=== PATIENT | male | born 1965 | race Caucasian/White ===

== ENCOUNTER 2019-03-28 03:35 | Emergency (ER) | payer BC ==
[2019-03-28 04:25] VITALS: RESP 18
--- NOTE | 2019-03-28 04:38 | ED ---
SOB HPI - General Chief Complaint: Shortness of Breath Stated Complaint: Diff Breathing Time Seen by Provider: 03/28/19 03:38 Source: patient, family Mode of arrival: wheelchair Limitations: no limitations - History of Present Illness Initial Comments: Gerald is a 53-year-old male who presents the ER for evaluation of coughing episode. Patient reports that he came home from work on Thursday with the fever, URI symptoms and cough. Patient reports that he slept most the afternoon Thursday but had to return to work on Thursday which time he still felt worse. He was feeling better on Thursday but began to have a lot of nasal drainage and congestion. Patient states that he went to bed and was woken by a coughing fit feeling like he had mucus in his throat. Patient states this past and he was feeling better he went back to sleep and again woke and had a coughing episode, coughed up mucus and then felt as though his throat closed and he couldn't catch his breath for approximately 3 seconds at which time he decided to come to the ER for further evaluation. Patient denies any pressure-like chest pain, chest pain, palpitations lightheadedness diaphoresis nausea or vomiting. - Related Data Allergies Allergy/AdvReac Type Severity Reaction Status Date / Time No Known Allergies Allergy Verified 03/28/19 03:51 Review of Systems ROS Statement: Those systems with pertinent positive or pertinent negative responses have been documented in the HPI. ROS Other: All systems not noted in ROS Statement are negative. Past Medical History Additional Past Medical History / Comment(s): cardiomyopathy History of Any Multi-Drug Resistant Organisms: None Reported Past Surgical History: No Surgical Hx Reported Past Psychological History: No Psychological Hx Reported Smoking Status: Never smoker Past Alcohol Use History: None Reported Past Drug Use History: None Reported General Exam - General Exam Comments Initial Comments: Physical Exam GENERAL: Patient is well-developed and well-nourished. Patient is nontoxic and well-hydrated and is in no distress. Morbidly obese HENT: Normocephalic, Atraumatic. EYES: PERRL, EOMI PULMONARY: Unlabored respirations. No audible rales rhonchi or wheezing was noted. CARDIOVASCULAR: There is a regular rate and rhythm without any murmurs gallops or rubs. ABDOMEN: Soft and nontender with normal bowel sounds. SKIN: Skin is clear with no lesions or rashes and otherwise unremarkable. : Deferred NEUROLOGIC: Patient is alert and oriented x3. Moving all extremities spontaneously MUSCULOSKELETAL: Normal extremities with adequate strength and full range of motion. No lower extremity swelling or edema. No calf tenderness. PSYCHIATRIC: Normal psychiatric evaluation. Limitations: no limitations Course Vital Signs 03/28/19 03/28/19 03:46 04:20 Temperature 99.8 F H Pulse Rate 93 Respiratory 20 18 Rate Blood Pressure 143/86 O2 Sat by Pulse 97 Oximetry Medical Decision Making - Medical Decision Making Patient was seen and evaluated history is obtained from patient and at bedside history and physical exam are concerning for flulike illness and an episode of coughing which the patient describes as feeling as though his throat closed for approximately 3 seconds. I suspect the patient experienced vocal cord spasm, this was discussed with the patient. However influenza testing and chest x-ray will be obtained. X-ray with no signs of pneumonia or acute findings ambulating throughout the emergency department without any symptoms or complaints Influenza testing was negative. Results were discussed with the patient who is comfortable with plan for discharge home. Supportive care was discussed. All questions pertaining care were answered return parameters were discussed patient was advised that if he has a feeling that he can't breathe to attempt slow deep breaths or call 911 immediately. - Lab Data Lab Results 03/28/19 Range/Units 04:41 Influenza Type A RNA Not Detected (Not Detectd) Influenza Type B (PCR) Not Detected (Not Detectd) Disposition Clinical Impression: Cough Disposition: HOME SELF-CARE Condition: Stable Instructions (If sedation given, give patient instructions): Upper Respiratory Infection (DC) Is patient prescribed a controlled substance at d/c from ED?: No Referrals: Bakari Pastor MD [Primary Care Provider] - 1-2 days
--- NOTE | 2019-03-28 04:51 | XR ---
EXAMINATION TYPE: XR chest 2V DATE OF EXAM: 03/28/2019 COMPARISON: NONE HISTORY: Cough TECHNIQUE: FINDINGS: There is no heart failure nor confluent pneumonic infiltrate. Costophrenic angles are clear . There is spurring in the thoracic spine. Heart size is normal. There are no hilar masses. IMPRESSION: No active cardiopulmonary disease.
[2019-03-28 05:53] VITALS: BP 143/88; PULSE 92; TEMP 98.6
== END 2019-03-28 05:53 | disposition home or self-care (01) ==
LOC: EC 03:35
DX: R05 Cough (principal); R06.02 Shortness of breath; R06.00 Dyspnea, unspecified
CPT/HCPCS: 71046; 87502; 99285

== ENCOUNTER 2020-06-09 10:45 | Emergency (ER) | payer BC ==
[2020-06-09 10:49] VITALS: RESP 18
[2020-06-09] MEDS ORDERED: ONDANSETRON ODT 4 MG TAB PO STA (11:15)
--- NOTE | 2020-06-09 11:15 | ED ---
General Adult HPI - General Chief complaint: Upper Respiratory Infection Stated complaint: wants Covid test Time Seen by Provider: 06/09/20 10:45 Source: patient, RN notes reviewed, old records reviewed Mode of arrival: ambulatory Limitations: no limitations - History of Present Illness Initial comments: This is a 54-year-old male who complains about being exposed to COVID by his . Patient states she's had diarrhea and has had a slight cough. Patient also states she is mildly nauseated but has not vomited. Patient denies fever chills. Patient states he has lost his sense of taste and smell. Patient states symptoms started . Patient denies any chest pain or difficulty breathing or shortness of breath. Patient denies any abdominal pain. Patient denies any swelling to the legs or calf tenderness. - Related Data Allergies Allergy/AdvReac Type Severity Reaction Status Date / Time No Known Allergies Allergy Verified 06/09/20 10:49 Review of Systems ROS Statement: Those systems with pertinent positive or pertinent negative responses have been documented in the HPI. ROS Other: All systems not noted in ROS Statement are negative. Past Medical History Additional Past Medical History / Comment(s): cardiomyopathy History of Any Multi-Drug Resistant Organisms: None Reported Past Surgical History: No Surgical Hx Reported Past Psychological History: No Psychological Hx Reported Smoking Status: Never smoker Past Alcohol Use History: Occasional Past Drug Use History: None Reported General Exam - General Exam Comments Initial Comments: GENERAL: Patient is well-developed and well-nourished. Patient is nontoxic and well- hydrated and is in no acute distress. ENT: Neck is soft and supple. No significant lymphadenopathy is noted. Oropharynx is clear. Moist mucous membranes. Neck has full range of motion without eliciting any pain. EYES: The sclera were anicteric and conjunctiva were pink and moist. Extraocular movements were intact and pupils were equal round and reactive to light. Eyelids were unremarkable. PULMONARY: Unlabored respirations. Good breath sounds bilaterally. No audible rales rhonchi or wheezing was noted. CARDIOVASCULAR: There is a regular rate and rhythm without any murmurs gallops or rubs. ABDOMEN: Soft and nontender with normal bowel sounds. SKIN: Skin is clear with no lesions or rashes and otherwise unremarkable. NEUROLOGIC: Patient is alert and oriented x3. Cranial nerves II through XII are grossly intact. Motor and sensory are also intact. Normal speech, volume and content. Symmetrical smile. MUSCULOSKELETAL: Normal extremities with adequate strength and full range of motion. LYMPHATICS: No significant lymphadenopathy is noted PSYCHIATRIC: Normal psychiatric evaluation. Limitations: no limitations Course Vital Signs 06/09/20 10:47 Temperature 98.2 F Pulse Rate 83 Respiratory 18 Rate Blood Pressure 131/71 O2 Sat by Pulse 100 Oximetry Medical Decision Making - Medical Decision Making Patient was COVID positive and he will receive monoclonal antibodies - Lab Data Lab Results 06/09/20 Range/Units 11:09 Coronavirus (PCR) Detected A (Not Detectd) Disposition Clinical Impression: COVID-19 Disposition: HOME SELF-CARE Condition: Good Instructions (If sedation given, give patient instructions): Coronavirus Disease 2019 (COVID-19) Additional Instructions: Patient's need to return for any new or worse symptoms. Is patient prescribed a controlled substance at d/c from ED?: No Referrals: Bakari Pastor MD [Primary Care Provider] - 1-2 days Time of Disposition: 12:08
[2020-06-09] MEDS ORDERED: BAMLANIVIMAB (EUA) 700 MG, ETESEVIMAB (EUA) 1,400 MG in SODIUM CHLORIDE 0.9% 50 ML IVPB ONE (13:00)
[2020-06-09 14:38] VITALS: BP 141/76; PULSE 75; TEMP 98.1
== END 2020-06-09 14:38 | disposition home or self-care (01) ==
LOC: EC 10:45
DX: U07.1 COVID-19 (principal)
CPT/HCPCS: 87635; 99284; 96365; Q0245

== ENCOUNTER → 2022-04-01 | Outpatient (CLI) | payer BC ==
--- NOTE | 2022-04-01 15:36 | P.SLEEP ---
History of Present Illness H&P Date: 04/01/22 56-year-old male patient, referred to me for evaluation of sleep apnea. The patient is currently working and living in [place]. 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 He attends is were in the afternoon and he arrives home at around 1:30 to 2 AM. 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 The patient reports that he has no issues falling asleep. He falls asleep at around 2 AM and he gets out of bed at around 8 AM. He averages a good 6 hours of sleep and he wakes up not refreshed. Does not utilize an alarm. He feels tired and sleepy during the day and off using assistance he has had difficulties to keep himself awake while driving [employer] on a long distance. He falls asleep easily. He has loud snoring and has been told to stop breathing in the middle of the night. He has issues with tiredness, fatigue, difficulty his memory and concentration during working hours. Despite all this, he is able to function still adequately. He is currently undergoing a diet and he has lost considerable amount of weight. The patient has lost approximately 70 pounds over the past 10 years. His current [place] score is at 17. He can either take a nap whenever he was given the opportunity to do so. No sleepwalking or sleep walking. He has occasional nighttime jerks, no reported kicks or seizure-like activity. No sleepwalking. No sleep talking. No nighttime heartburn or shortness of breath or chest pain. He is interested in pursuing the diagnosis of sleep apnea. He is a . No reported history of anxiety or depression. No history of any PTSD. Does not take any form of psychiatric medication. He has a previous history of viral cardiomyopathy which improved with medication. His most recent ejection fraction is normal. Coronaries have been normal on previous cardiac catheterization. He is a nonsmoker. Drinks alcohol socially. Drinks 2 cups of coffee in the morning. No substance abuse. Review of Systems Constitutional: Reports daytime sleepiness, Reports fatigue, Reports weight loss Eyes: denies as per HPI, denies blurred vision, denies bulging eye, denies decreased vision, denies diplopia, denies discharge, denies dry eye, denies irritation, denies itching, denies pain, denies photophobia, denies loss of peripheral vision, denies loss of vision, denies tunnel vision/blind spots Ears: deny: decreased hearing, ear discharge, earache, tinnitus Ears, nose, mouth and throat: Reports as per HPI Breasts: absent: as per HPI, gynecomastia Cardiovascular: Reports as per HPI Respiratory: Reports dyspnea, Reports snoring Genitourinary: Reports as per HPI Musculoskeletal: Reports as per HPI Musculoskeletal: absent: ankle pain, ankle stiffness, ankle swelling, as per HPI, elbow pain, elbow stiffness, elbow swelling, foot pain, foot stiffness, foot swelling, hand pain, hand stiffness, hand swelling, hip pain, hip stiffness, hip swelling, knee pain, knee stiffness, knee swelling, shoulder pain, shoulder stiffness, shoulder swelling, wrist pain, wrist stiffness, wrist swelling Integumentary: Reports as per HPI Neurological: Reports as per HPI Psychiatric: Reports as per HPI Endocrine: Reports as per HPI Hematologic/Lymphatic: Reports as per HPI Allergic/Immunologic: Reports as per HPI Past Medical History Additional Past Medical History / Comment(s): Viral cardiomyopathy improved with medical treatment, diverticulosis, gout, hypertension, obesity History of Any Multi-Drug Resistant Organisms: None Reported Past Surgical History: No Surgical Hx Reported, Cholecystectomy, Orthopedic Surgery Additional Past Surgical History / Comment(s): Surgery for a fracture of the left lower extremity, cholecystectomy Past Psychological History: No Psychological Hx Reported Smoking Status: Never smoker Past Alcohol Use History: Occasional Past Drug Use History: None Reported Medications and Allergies Home Medications and Allergies Comment(s): Allopurinol 300 mg 1 tab today, Corag 6.25 mg 1 tablet twice a day, enalapril 10 mg by mouth daily, niacin and fibers. Allergies Allergy/AdvReac Type Severity Reaction Status Date / Time No Known Allergies Allergy Verified 06/09/20 10:49 Physical Exam BP is 109/69 with a pulse of 77 and a respiration of 18 and a temperature of 97.2. Oxygen saturation is 92% on room air oxygen. [place] score is at 17. Neck is 19 inches, body mass index is 44.2 and the weight is 331 pounds. Gen. appearance obese, comfortable no acute distress Head exam was generally normal. There was no scleral icterus or corneal arcus. Mucous membranes were moist. Neck is supple and the patient has significant crowding of the posterior oropharynx. Mallampati class IV. No bruits or neck masses. Lungs were clear to auscultation and percussion, and with normal diaphragmatic excursion. No wheezes or rales were noted. Breath sounds are diminished in lung bases bilaterally. Cardiac exam revealed the PMI to be normally situated and sized. The rhythm was regular and no extrasystoles were noted during several minutes of auscultation. The first and second heart sounds were normal and physiologic splitting of the second heart sound was noted. There were no murmurs, rubs, clicks, or gallops. Abdomen is obese soft nontender. Organs cannot be accurately palpated. No direct tenderness or rebound tenderness or guarding. Examination of the extremities revealed easily palpable radial, femoral and pedal pulses. There was no cyanosis, clubbing or edema. Examination of the skin revealed no evidence of significant rashes, suspicious appearing nevi or other concerning lesions. Neurologically, the patient is awake and alert and the patient does not have any focal neurological deficit. Cranial nerves are essentially intact. Assessment and Plan Plan: Assessment Chronic hypersomnia with an [place] score of 17, possible obstructive sleep apnea based on reported history of snoring and apneas. 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 History of morbid obesity BMI 44.2 lost more than 70 pounds over the past year's Viral cardiomyopathy, and followed with medications, normal ejection fraction according to the patient Hypertension Gout Diverticulosis Plan Proceed with a home sleep study to evaluate this patient for any sleep apnea Maintain regular sleep schedule Encourage further weight loss Comorbidities have been adequately treated for now and there is no signs of decompensated heart failure We'll continue to follow Sleep Note - Sleep Note Sleep Note: Temperature: Pulse Rate: Respiratory Rate: Blood Pressure: SpO2: Height: Weight: BMI: Neck Circumference:
== END ==
LOC: SLEEP 14:11
PROVIDERS: ATTEND Internal Medicine Critical Care Medicine
DX: I10 Essential (primary) hypertension (principal); G47.10 Hypersomnia, unspecified; E66.01 Morbid (severe) obesity due to excess calories; Z68.41 Body mass index [BMI] 40.0-44.9, adult; B33.24 Viral cardiomyopathy; M10.9 Gout, unspecified; K57.90 Diverticulosis of intestine, part unspecified, without perforation or abscess without bleeding
CPT/HCPCS: 99211

== ENCOUNTER → 2022-08-21 | Outpatient (CLI) | payer BC ==
--- NOTE | 2022-08-21 12:18 | P.PN ---
Subjective DATE: 08/21/2022 FOLLOW UP VISIT. Patient with obstructive sleep apnea hypopnea syndrome return to sleep center for follow-up visit. Recently patient had sleep study which documented obstructive sleep apnea hypopnea syndrome. Patient was initiated on PAP therapy and today is first visit after treatment was started. I explained results of the sleep study to patient and family in details. Patient was able to use PAP equipment every night for the whole night. The patient does not have significant problems with the mask, PAP pressure and humidification. [place] sleepiness scale is increased to 15. I checked information from PAP unit. PAP unit pressure 5-15 cm H2O. Usage is 100 % for more then 4 hours, average 6.5 hours per night. Leak is increased to 45.8 l/m. Apnea Hypopnea Index is 1.7, which is normal. MEDICATIONS:1. Allopurinol 300 mg once a day 2. Coreg 6.25 mg twice a day 3. Enalapril 10 mg once a day 4. Niacin During physical exam: GENERAL: A pleasant patient without any distress. VITAL SIGNS: BP 116/73, HR 80, RR 16, weight 331.8, temperature 98.0, oxygen saturation at room air 98%. HEENT: PERRLA, EOMI.low position of soft palate, Mallapati 3 . NECK: Supple. No JVD. LUNGS: Clear to percussion and to auscultation. Good air exchange. No wheezing or rhonchi. HEART: S1, S2 regular. ABDOMEN: Soft and nontender. Obese EXTREMITIES: No clubbing or cyanosis. SPOT REMOVER: Awake, alert, and oriented x3. No focal deficit. Impressions: 1. Obstructive sleep apnea-hypopnea syndrome. Patient demonstrated great compliance with treatment, benefiting from treatment. 2. Obesity. 3. History of viral cardiomyopathy with normal ejection fraction recently. 4. Hypertension. 5. Gout. 6. History of PTSD. 7. History of diverticulosis. 8. Status post cholecystectomy. 9. Status post surgical treatment for fracture of left leg. Plan: 1. Continue using PAP equipment every night for the whole night. 2. To change air filter at least 1-2 times per month. 3. PAP unit should stay lower then position of the head. 4. Advised patient to remove all remaining water from humidifier canister daily and make it dry after each usage. Refill canister with fresh distilled water before each usage. 5. Sleep hygiene with regular time in bed for at least 8 hours. 6. Precautions related to driving. No driving if feel any sleepiness. 7. I will maintain prescription for PAP supplies including mask, tube, filters. 8. Watching and losing weight. 9. Follow up visit in 6 months or earlier if patient has any problems. Thank you very much for allowing me to participate in the management of your patient. Mario De León MD, PhD, FAASM. Diplomat of [place] [employer], Sleep Medicine Board by [place] [employer] Contract Administrator of [facility] [place]
== END ==
LOC: 3 N SLEEP 11:01
PROVIDERS: ATTEND Internal Medicine
DX: G47.33 Obstructive sleep apnea (adult) (pediatric) (principal); I10 Essential (primary) hypertension; F43.10 Post-traumatic stress disorder, unspecified; K57.90 Diverticulosis of intestine, part unspecified, without perforation or abscess without bleeding; M10.9 Gout, unspecified; E66.9 Obesity, unspecified; Z98.890 Other specified postprocedural states; Z99.89 Dependence on other enabling machines and devices
CPT/HCPCS: 99212